=== PATIENT | female | born 1960 | race Caucasian/White ===

== ENCOUNTER 2019-04-13 09:18 | Emergency (ER) | payer BC, OTHER ==
[2019-04-13] MEDS ORDERED: Ibuprofen 600 MG Tab PO ONE (10:19)
--- NOTE | 2019-04-13 10:24 | EDM.PDOC ---
ED HPI GENERAL MEDICAL PROBLEM - General Chief Complaint: Lower Extremity Injury/Pain Stated Complaint: FELL ON ICE LT ANKLE INJ Time Seen by Provider: 04/13/19 10:20 Source of Information: Reports: Patient, RN, RN Notes Reviewed History Limitations: Reports: No Limitations - History of Present Illness INITIAL COMMENTS - FREE TEXT/NARRATIVE: Patient is a 58-year-old female who presents to our ED with left ankle pain after slipping on some black ice. She reports she fell and heard a snap and a pop. She does now have an obvious area of swelling on her left lateral leg just above the ankle. She denies hitting her head. She reports she fell in a somewhat sitting up position. Denies any worsening back or hip pain however she does report she has borderline chronic pain. She took some Tylenol ice this for 15 minutes around 9 AM admission. She reports this did help. She denies any pain while sitting but reports pain is worse with weightbearing. She carries a history of hypertension, hyperlipidemia, hypothyroidism. Denies any current blood thinners or aspirin. No drug allergies. Her PCP or his Lina Mackey NP. Left Ankle Pain Score (Numeric/FACES): 3 - Related Data Allergies Allergy/AdvReac Type Severity Reaction Status Date / Time No Known Allergies Allergy Verified 04/13/19 09:54 Home Meds: Home Meds Levothyroxine 25 mcg PO DAILY 04/13/19 [History] Lisinopril 30 mg PO DAILY 04/13/19 [History] Metoprolol Succinate 100 mg PO DAILY 04/13/19 [History] Rosuvastatin [Crestor] 10 mg PO DAILY 04/13/19 [History] Past Medical History HEENT History: Reports: Impaired Vision Cardiovascular History: Reports: High Cholesterol, Hypertension Social & Family History - Tobacco Use Smoking Status *Q: Never Smoker Second Hand Smoke Exposure: No Review of Systems - Review of Systems Review Of Systems: See Below Constitutional: Reports: No Symptoms Eyes: Reports: No Symptoms Ears: Reports: No Symptoms Nose: Reports: No Symptoms Respiratory: Reports: No Symptoms. Denies: Shortness of Breath, Wheezing, Cough , Sputum Cardiovascular: Reports: No Symptoms. Denies: Chest Pain, Edema, Lightheadedness, Palpitations GI/Abdominal: Reports: No Symptoms Genitourinary: Reports: No Symptoms Musculoskeletal: Reports: Leg Pain (Left leg above ankle ), Joint Swelling ( Swelling above left ankle joint ). Denies: Foot Pain, Joint Pain Skin: Reports: No Symptoms Neurological: Reports: No Symptoms Psychiatric: Reports: No Symptoms ED EXAM, GENERAL - Physical Exam Exam: See Below Exam Limited By: No Limitations General Appearance: Alert, WD/WN, No Apparent Distress Ears: Normal External Exam, Hearing Grossly Normal Nose: Normal Inspection Throat/Mouth: Normal Inspection, Normal Lips, Normal Teeth, Normal Gums, Normal Oropharynx, Normal Voice, No Airway Compromise Head: Atraumatic, Normocephalic Neck: Normal Inspection, Supple, Non-Tender, Full Range of Motion Respiratory/Chest: No Respiratory Distress, Lungs Clear, Normal Breath Sounds, No Accessory Muscle Use, Chest Non-Tender Cardiovascular: Normal Peripheral Pulses, Regular Rate, Rhythm, No Edema, No Gallop, No JVD, No Murmur, No Rub Peripheral Pulses: 3+: Radial (L), Radial (R), Dorsalis Pedis (L), Dorsalis Pedis (R) (Female) Exam: Deferred Back Exam: Normal Inspection, Full Range of Motion. No: Paraspinal Tenderness, Vertebral Tenderness Extremities: Normal Range of Motion, Non-Tender, No Pedal Edema, Normal Capillary Refill, Joint Swelling (Swelling noted above left ankle), Leg Pain ( Left leg above ankle ), Limited Range of Motion (2/2 pain) Neurological: Alert, Oriented Psychiatric: Normal Affect, Normal Mood Skin Exam: Warm, Dry, Intact Course - Vital Signs Last Recorded V/S: Last Vital Signs Temp 97.3 F 04/13/19 09:51 Pulse 136 H 04/13/19 09:51 Resp 16 04/13/19 09:51 BP 136/93 H 04/13/19 09:51 Pulse Ox 98 04/13/19 09:51 - Orders/Labs/Meds Orders: Active Orders 24 hr Category Date Time Status Ankle Min 3V Lt [CR] Stat Exams 04/13/19 10:20 Taken Meds: Medications Discontinued Medications Generic Name Dose Route Start Last Admin Trade Name Freq PRN Reason Stop Dose Admin Ibuprofen 600 mg 04/13/19 10:19 04/13/19 10:25 Motrin PO 04/13/19 10:20 600 mg ONETIME ONE Administration - Re-Assessments/Exams Free Text/Narrative Re-Assessment/Exam: Discussed pain control with patient. She reports she took Tylenol around 90?for the pain. Discussed importance of NSAID to help with swelling. Will order radiographic study of left ankle. Will also order 600mg PO motrin. 04/13/19 10:24 Reviewed left ankle x-ray with Dr. Sanz. Non-displaced distal fibular fracture noted. Will place walking boot and advise non-weightbearing status. Will have follow-up with Ortho. 04/13/19 10:39 Departure - Departure Time of Disposition: 10:42 Disposition: Home, Self-Care 01 Condition: Good Clinical Impression: Fibula fracture Qualifiers: Encounter type: initial encounter Fibula location: distal Fracture type: closed Fracture morphology: unspecified fracture morphology Laterality: left Qualified Code(s): S82.832A - Other fracture of upper and lower end of left fibula, initial encounter for closed fracture - Discharge Information *PRESCRIPTION DRUG MONITORING PROGRAM REVIEWED*: No *COPY OF PRESCRIPTION DRUG MONITORING REPORT IN PATIENT FLORIAN: No Instructions: Crutch Use, Adult, [id number] Referrals: Nunu Mackey NP [Primary Care Provider] - Forms: ED Department Discharge Additional Instructions: You were seen today for left leg pain. X-rays were obtained and showed that you have a left fibular fracture. The bones appear to be aligned well, which we called nondisplaced. You should not bear weight on this leg until directed otherwise by an orthopedist. Recommended you keep your extremity elevated and apply ice. We sure to use caution as he did not want to get frostbite on this leg as well. You can continue to use [id number] Tylenol and ibuprofen. Ibuprofen will be a little bit better choice because it will help with the swelling as well. You may follow car supervisor's dosing recommendations for this. Be sure to use caution as it is becoming icy out with your crutches. Should symptoms worsen or pain become unbearable, return to the emergency room, see your primary care provider, or report to orthopedics. We have an orthopedist from [facility], Dr. Chery, in our clinic on the third floor. You may call [phone] to schedule an appointment with him. [facility] also has orthopedics that visit and you may call [phone] to schedule with them. Recommended you follow-up with in orthopedics within 1 week. - My Orders Last 24 Hours: My Active Orders 04/13/19 10:20 Ankle Min 3V Lt [CR] Stat - Assessment/Plan Last 24 Hours: My Active Orders 04/13/19 10:20 Ankle Min 3V Lt [CR] Stat
--- NOTE | 2019-04-13 11:00 | CR ---
Left ankle: Four views of the left ankle were obtained. Comparison: No previous ankle study. Fracture is identified within the distal fibula. Fracture is oblique in alignment. Alignment remains close to anatomic. Ankle mortise is symmetric. Small calcification is seen off the medial malleolus. Small plantar spur is noted. No additional fracture or other bony abnormality is seen. Impression: 1. Nondisplaced distal fibular fracture. 2. Other findings as noted above believed to be incidental. Diagnostic code #3
== END 2019-04-13 11:14 | disposition home or self-care (01) ==
LOC: JD.ED 09:18
DX: S82.832A Other fracture of upper and lower end of left fibula, initial encounter for closed fracture (principal); I10 Essential (primary) hypertension; E03.9 Hypothyroidism, unspecified; E78.5 Hyperlipidemia, unspecified; E78.00 Pure hypercholesterolemia, unspecified; Z79.890 Hormone replacement therapy; Z79.899 Other long term (current) drug therapy; W00.0XXA Fall on same level due to ice and snow, initial encounter; Y93.K1 Activity, walking an animal
CPT/HCPCS: 73610; 99283; A9270

== ENCOUNTER 2019-12-30 06:40 | Inpatient (IN) | payer OTHER ==
[~2019-12-30 06:40] MED LIST: Bisacodyl 5 MG Tab PO PRN; Ketorolac 15 MG/ML SDV IVPUSH PRN; Lidocaine 1%/Sod Bicarbonate in NS 8.4% 1 ML Syringe IDERM PRN; Magnesium Hydroxide 400 MG/5 ML Susp 30 ML Cup PO PRN; Morphine 2 MG/ML SYRINGE IVPUSH PRN; Naloxone 0.4 MG/ML SDV IVPUSH PRN; Ondansetron 4 MG/2 ML SDV IVPUSH PRN; Sennosides 8.6 MG Tab PO PRN; Sodium Chloride 0.9% 10 ML Syringe FLUSH PRN
[2019-12-30] MEDS ORDERED: Acetaminophen 325 MG/10.15 ML ML PO SCH (06:54)
[2019-12-30] MEDS ORDERED: oxyCODONE ER 10 MG TAB.ER PO SCH (06:54)
[2019-12-30] MEDS ORDERED: Pregabalin 25 MG Cap PO SCH (06:55)
[2019-12-30] MEDS ORDERED: Famotidine 20 MG Tab PO SCH (07:00)
[2019-12-30] MEDS ORDERED: ceFAZolin 2 GM in Premix Bag 1 BAG IV SCH (07:00)
[2019-12-30] MEDS ORDERED: Acetaminophen 325 MG Tab PO SCH (07:01)
[2019-12-30] MEDS ORDERED: Propofol 200 MG/20 ML SDV ONE ×4 (07:06→09:07)
[2019-12-30] MEDS ORDERED: Ondansetron 4 MG/2 ML SDV ONE (07:06)
[2019-12-30] MEDS ORDERED: Midazolam 1 MG/ML 2 ML SDV ONE (07:07)
[2019-12-30] MEDS ORDERED: Lidocaine 1% 4 ML ONE (07:07)
[2019-12-30] MEDS ORDERED: fentaNYL 100 MCG/2 ML SDV ONE (07:07)
[2019-12-30] MEDS ORDERED: Bupivacaine 0.25% 10 ML SDV ONE (07:08)
[2019-12-30] MEDS ORDERED: Vancomycin 1 GM SDV ONE (07:08)
[2019-12-30] MEDS ORDERED: Iodine/Sodium Iodide 2% Tincture 30 ML Bottle ONE (07:08)
[2019-12-30] MEDS ORDERED: ceFAZolin 1 GM Vial ONE (07:08)
--- NOTE | 2019-12-30 07:14 | PCM.PREANE ---
Preanesthetic Assessment - Procedure Proposed Procedure: right total hip - Anesthesia/Transfusion/Family Hx Anesthesia History: Prior Anesthesia Without Reaction Family History of Anesthesia Reaction: No Transfusion History: Prior Transfusion Without Reaction - Review of Systems General: No Symptoms Pulmonary: No Symptoms Cardiovascular: No Symptoms Gastrointestinal: No Symptoms Neurological: No Symptoms Other: Reports: Thyroid Problems (hypothyroidism) - Physical Assessment NPO Status Date: 12/29/19 NPO Status Time: 00:00 Height: 1.75 m Weight: 74.1 kg ASA Class: 2 Mental Status: Alert & Oriented x3 Airway Class: Mallampati = 1 Dentition: Reports: Normal Dentition Thyro-Mental Finger Breadths: 3 Mouth Opening Finger Breadths: 3 ROM/Head Extension: Full Lungs: Clear to Auscultation, Normal Respiratory Effort Cardiovascular: Regular Rate, Regular Rhythm - Lab Values: Laboratory Last Values MRSA (PCR) Negative 12/16/19 12:24 - Imaging/EKG Impressions: EKG SR rate of 92 - Allergies Allergies/Adverse Reactions: Allergies Allergy/AdvReac Type Severity Reaction Status Date / Time No Known Allergies Allergy Verified 12/29/19 14:34 - Blood Blood Available: Yes Product(s) Available: PRBC - Anesthesia Plan Pre-Op Medication Ordered: Beta Robin Beta Robin: Metoprolol Med Last Dose Date: 12/30/19 Med Last Dose Time: 05:40 - Acknowledgements Anesthesia Type Planned: Spinal Pt an Appropriate Candidate for the Planned Anesthesia: Yes Alternatives and Risks of Anesthesia Discussed w Pt/Guardian: Yes Pt/Guardian Understands and Agrees with Anesthesia Plan: Yes PreAnesthesia Questionnaire HEENT History: Reports: Impaired Vision Cardiovascular History: Reports: High Cholesterol, Hypertension Respiratory History: Reports: None Gastrointestinal History: Reports: None Genitourinary History: Reports: None PHOTOGRAPHY PROFESSOR History: Reports: None Musculoskeletal History: Reports: Other (See Below) Other Musculoskeletal History: right fibula stress fracture, hip pain, left fibula fracture, knee arthroscopy Neurological History: Reports: None Psychiatric History: Reports: None Endocrine/Metabolic History: Reports: Hypothyroidism Hematologic History: Reports: None Immunologic History: Reports: None Oncologic (Cancer) History: Reports: None Dermatologic History: Reports: None - Past Surgical History Head Surgeries/Procedures: Reports: None Cardiovascular Surgical History: Reports: None Respiratory Surgical History: Reports: None GI Surgical History: Reports: Colonoscopy Female Surgical History: Reports: Hysterectomy Male Surgical History: Reports: None Endocrine Surgical History: Reports: None Neurological Surgical History: Reports: None Musculoskeletal Surgical History: Reports: None Oncologic Surgical History: Reports: None Dermatological Surgical History: Reports: None - SUBSTANCE USE Smoking Status *Q: Never Smoker Tobacco Use Within Last Twelve Months: No Second Hand Smoke Exposure: No Days Per Week of Alcohol Use: 1 Number of Drinks Per Day: 4 Total Drinks Per Week: 4 Recreational Drug Use History: No - HOME MEDS Home Medications: Home Meds Levothyroxine 25 mcg PO DAILY 04/13/19 [History] Metoprolol Succinate 150 mg PO DAILY 04/13/19 [History] Rosuvastatin [Crestor] 10 mg PO DAILY 04/13/19 [History] Ascorbic Acid [Vitamin C] 250 mg PO DAILY 12/29/19 [History] Calcium Carb/Vitamin D3/Vit K1 [Calcium + D Soft Chewable Tab] 1 tab PO DAILY 12/29/19 [History] Cetirizine [ZyrTEC] 10 mg PO DAILY 12/29/19 [History] Cholecalciferol (Vitamin D3) [Vitamin D3] 5,000 unit PO DAILY 12/29/19 [History] Elderberry Fruit and Flower [Black Elderberry 575 mg Cap] 2 cap PO DAILY 12/29/19 [History] Fluticasone Propionate [Flonase] 1 dose BECKI BID 12/29/19 [History] Magnesium Citrate 400 mg PO DAILY 12/29/19 [History] Turmeric Root Extract [Turmeric Curcumin] 1,500 mg PO DAILY 12/29/19 [History] Ubidecarenone [Coq-10] 200 mg PO DAILY 12/29/19 [History] hydroCHLOROthiazide [Hydrochlorothiazide] 25 mg PO DAILY 12/29/19 [History] lisinopriL [Lisinopril] 40 mg PO DAILY 12/29/19 [History] - CURRENT (IN HOUSE) MEDS Current Meds: Current Medications Acetaminophen (Tylenol) 975 mg PO ONETIME SABRA Acetaminophen (Tylenol) 975 mg PO NOW SABRA Aspirin (Ecotrin) 325 mg PO BID SABRA Bisacodyl (Dulcolax) 5 mg PO DAILY PRN PRN Reason: Constipation Morphine Sulfate 8 mg/Epinephrine HCl 0.3 mg/Cefuroxime Sodium 750 mg/Ketorolac Tromethamine 30 mg/Sodium Chloride 7.9 ml 0 mg .XX ASDIRECTED PRN PRN Reason: Pain Cyclobenzaprine HCl (Flexeril) 10 mg PO TID PRN PRN Reason: Spasms Docusate Sodium (Colace) 100 mg PO BID SABRA Famotidine (Pepcid) 20 mg PO Q12H [facility] Lactated Ringer's (Ringers, Lactated) 1,000 mls @ 125 mls/hr IV ASDIRECTED SABRA Stop: 12/30/19 23:00 Cefazolin Sodium/Dextrose 2 gm (/ Premix) 50 mls @ 100 mls/hr IV Q8H [facility] Stop: 12/30/19 23:29 Ketorolac Tromethamine (Toradol) 15 mg IVPUSH Q6H PRN PRN Reason: Pain Lidocaine/Sodium Bicarbonate (Buffered Lidocaine 1% In Ns 8.4%) 0.25 ml IDERM ONETIME PRN PRN Reason: Prior to IV Start Stop: 12/30/19 18:00 Magnesium Hydroxide (Milk Of Magnesia) 30 ml PO BID PRN PRN Reason: Constipation Morphine Sulfate (Morphine) 2 mg IVPUSH Q2H PRN PRN Reason: Breakthrough Pain Naloxone HCl (Narcan) 0.1 mg IVPUSH Q5M PRN PRN Reason: Oversedation Ondansetron HCl (Zofran) 4 mg IVPUSH Q6H PRN PRN Reason: Nausea/Vomiting Oxycodone HCl (Oxycontin) 10 mg PO ONETIME [facility] Stop: 12/30/19 13:00 Oxycodone/Acetaminophen (Percocet 325-5 Mg) 1 - 2 tab PO Q4H PRN PRN Reason: Pain Pregabalin (Lyrica) 50 mg PO ONETIME [facility] Stop: 12/30/19 13:00 Senna (Senna) 8.6 mg PO BID PRN PRN Reason: Constipation Sodium Chloride (Saline Flush) 10 ml FLUSH ASDIRECTED PRN PRN Reason: Keep Vein Open Stop: 12/30/19 18:00
--- NOTE | 2019-12-30 07:20 | PCM.CONS ---
H&P History of Present Illness - General Date of Service: 12/30/19 Admit Problem/Dx: Admission Diagnosis/Problem Admission Diagnosis/Problem Osteoarthritis of hip Source of Information: Patient, Old Records, Provider, RN, RN Notes Reviewed History Limitations: Reports: No Limitations - History of Present Illness Initial Comments - Free Text/Narative: Jenni Johnson is a 59 yo female patient of Dr. Chery who is post-operative day 1 of right MORRIS. Hospital medicine was consulted for post-operative medical care of the following listed medical conditions. At this time she is resting comfortably in bed. Pain is controlled. She denies any chest pain, shortness of breath, palpitations, nausea, or vomiting. She carries a history of: HLD, HTN, Hypothyroidism. She was never a smoker. She is a full code. Her primary care provider is Armin Mackey NP. Right Hip Pain Score (Numeric/FACES): 4 - Related Data Allergies/Adverse Reactions: Allergies Allergy/AdvReac Type Severity Reaction Status Date / Time No Known Allergies Allergy Verified 12/30/19 11:49 Home Medications: Home Meds Levothyroxine 25 mcg PO DAILY 04/13/19 [History] Metoprolol Succinate 150 mg PO DAILY 04/13/19 [History] Rosuvastatin [Crestor] 10 mg PO DAILY 04/13/19 [History] Calcium Carb/Vitamin D3/Vit K1 [Calcium + D Soft Chewable Tab] 1 tab PO DAILY 12/29/19 [History] Cetirizine [ZyrTEC] 10 mg PO DAILY 12/29/19 [History] Cholecalciferol (Vitamin D3) [Vitamin D3] 5,000 unit PO DAILY 12/29/19 [History] Elderberry Fruit and Flower [Black Elderberry 575 mg Cap] 1 cap PO DAILY 12/29/19 [History] Fluticasone Propionate [Flonase] 1 spray NASBOTH BID PRN 12/29/19 [History] Magnesium Citrate 400 mg PO DAILY 12/29/19 [History] Turmeric Root Extract [Turmeric Curcumin] 1,500 mg PO DAILY 12/29/19 [History] Ubidecarenone [Coq-10] 200 mg PO DAILY 12/29/19 [History] hydroCHLOROthiazide [Hydrochlorothiazide] 25 mg PO DAILY 12/29/19 [History] lisinopriL [Lisinopril] 40 mg PO DAILY 12/29/19 [History] Past Medical History HEENT History: Reports: Impaired Vision Cardiovascular History: Reports: High Cholesterol, Hypertension Respiratory History: Reports: None Gastrointestinal History: Reports: None Genitourinary History: Reports: None DIGITAL CAMPAIGN SPECIALIST History: Reports: None Musculoskeletal History: Reports: Other (See Below) Other Musculoskeletal History: right fibula stress fracture, hip pain, left fibula fracture, knee arthroscopy Neurological History: Reports: None Psychiatric History: Reports: None Endocrine/Metabolic History: Reports: Hypothyroidism Hematologic History: Reports: None Immunologic History: Reports: None Oncologic (Cancer) History: Reports: None Dermatologic History: Reports: None - Past Surgical History Head Surgeries/Procedures: Reports: None Cardiovascular Surgical History: Reports: None Respiratory Surgical History: Reports: None GI Surgical History: Reports: Colonoscopy Female Surgical History: Reports: Hysterectomy Male Surgical History: Reports: None Endocrine Surgical History: Reports: None Neurological Surgical History: Reports: None Musculoskeletal Surgical History: Reports: None Oncologic Surgical History: Reports: None Dermatological Surgical History: Reports: None Social & Family History - Tobacco Use Smoking Status *Q: Never Smoker Second Hand Smoke Exposure: No - Caffeine Use Caffeine Use: Reports: Coffee, Soda - Recreational Drug Use Recreational Drug Use: No H&P Review of Systems - Review of Systems: Review Of Systems: See Below General: Reports: No Symptoms. Denies: Fever, Chills HEENT: Reports: No Symptoms. Denies: Headaches, Sore Throat Pulmonary: Reports: No Symptoms. Denies: Shortness of Breath, Wheezing, Pleuritic Chest Pain, Cough, Sputum Cardiovascular: Reports: No Symptoms. Denies: Chest Pain, Palpitations, Dyspnea on Exertion Gastrointestinal: Reports: No Symptoms. Denies: Abdominal Pain, Constipation, Diarrhea, Nausea, Vomiting Genitourinary: Reports: No Symptoms. Denies: Pain Musculoskeletal: Reports: Leg Pain Skin: Reports: No Symptoms. Denies: Cyanosis Psychiatric: Reports: No Symptoms. Denies: Confusion Neurological: Reports: Numbness, Tingling, Difficulty Walking, Gait Disturbance Hematologic/Lymphatic: Reports: No Symptoms Immunologic: Reports: No Symptoms Exam - Exam Exam: See Below - Exam Quality Assessment: DVT Prophylaxis General: Alert, Oriented, Cooperative. No: Mild Distress HEENT: Conjunctiva Clear, EACs Clear, Mucosa Moist & [place], Posterior Pharynx Clear, PERRLA Neck: Supple, Trachea Midline Lungs: Clear to Auscultation, Normal Respiratory Effort Cardiovascular: Regular Rate, Regular Rhythm GI/Abdominal Exam: Normal Bowel Sounds, Soft, Non-Tender, No Distention (Female) Exam: Deferred Rectal (Female) Exam: Deferred Extremities: Normal Capillary Refill, Leg Pain, Limited Range of Motion, Other (Bandage in place on right leg. Bandage is dry and intact. Cooling pack in place. ) Peripheral Pulses: 2+: Radial (L), Radial (R), Dorsalis Pedis (L), Dorsalis Pedis (R) Skin: Warm, Dry, Intact Neurological: Cranial Nerves Intact (Grossly ) Neuro Extensive - Mental Status: Alert, Oriented x3, Normal Mood/Affect - Patient Data Result Diagrams: 12/31/19 05:35 Sepsis Event Note - Focused Exam Date Exam was Performed: 12/31/19 Time Exam was Performed: 07:00 Consult PN Assessment/Plan POD#: 0 Procedures: Procedures EMERGENCY DEPT VISIT (04/13/19) MRI JNT OF LWR EXTRE W/O DYE (11/17/19) X-RAY EXAM OF ANKLE (04/13/19) (1) S/P total hip arthroplasty SNOMED Code(s): 680479546043, 487596023285 Code(s): Z96.649 - PRESENCE OF UNSPECIFIED ARTIFICIAL HIP JOINT Priority: High Current Visit: Yes Qualifiers: Laterality: right Qualified Code(s): Z96.641 - Presence of right artificial hip joint (2) Osteoarthritis SNOMED Code(s): 098105678 Code(s): M19.90 - UNSPECIFIED OSTEOARTHRITIS, UNSPECIFIED SITE Priority: High Current Visit: Yes Qualifiers: Osteoarthritis location: hip Osteoarthritis type: primary Laterality: right Qualified Code(s): M16.11 - Unilateral primary osteoarthritis, right hip (3) HLD (hyperlipidemia) SNOMED Code(s): 10503108 Code(s): E78.5 - HYPERLIPIDEMIA, UNSPECIFIED Priority: Low Current Visit: No Qualifiers: Hyperlipidemia type: unspecified Qualified Code(s): E78.5 - Hyperlipidemia, unspecified (4) HTN (hypertension) SNOMED Code(s): 62646481 Code(s): I10 - ESSENTIAL (PRIMARY) HYPERTENSION Priority: Medium Current Visit: No Qualifiers: Hypertension type: unspecified Qualified Code(s): I10 - Essential (primary) hypertension (5) Hypothyroidism SNOMED Code(s): 09027395 Code(s): E03.9 - HYPOTHYROIDISM, UNSPECIFIED Priority: Low Current Visit: No Qualifiers: Hypothyroidism type: unspecified Qualified Code(s): E03.9 - Hypothyroidism, unspecified Problem List Initiated/Reviewed/Updated: Yes Plan: I/P: Acute: S/P right total hip arthroplasty - post-operative day 0 -DVT prophylaxis and pain management per primary care team -PT/OT -IS/RT -Monitor oxygen saturation -Titrate oxygen as needed -Home medications reviewed -Vital signs stable -Monitor labs -Pre-operative Hgb was 13.2 -Pre-operative GFR was 64 -12-lead EKG shows sinus rhythm at 92 BPM with probable LAE, RSR' noted in V1 and V2. Osteoarthritis of right hip -Pain management per primary care team Chronic: HLD HTN Hypothyroidism Plan: CM for discharge planning GI prophylaxis Home medications as indicated Other orders as listed above Routine AM labs She is a full code. Her PCP is Armin Mackey NP Thank you for allowing us to participate in the care of this patient!! Requesting Provider: Dr. Chery Date Consult Requested: 12/30/19 Patient History Reviewed: Yes Admission H&P Reviewed: Yes Notified Requestor: Yes
[2019-12-30] MEDS: Lactated Ringers 1,000 ML IV SCH ×2 (07:25→10:13)
[2019-12-30] MEDS ORDERED: Morphine Sulfate 8 MG, EPINEPHrine 0.3 MG, Cefuroxime 750 MG, Ketorolac 30 MG, Sodium C... PRN ×5 (08:00)
[2019-12-30] MEDS ORDERED: ePHEDrine Sulfate/0.9% NaCl/Pf 25 MG/5 ML SYRINGE IV ONE (08:04)
[2019-12-30] MEDS ORDERED: Lactated Ringers 1,000 ML ONE (08:17)
[2019-12-30] MEDS: ceFAZolin 1 GM Vial ONE ×2 (08:47→08:48)
--- NOTE | 2019-12-30 09:28 | PCM.POSTAN ---
POST ANESTHESIA ASSESSMENT - MENTAL STATUS Mental Status: Alert, Oriented - VITAL SIGNS Vital Signs: Last Vital Signs Temp 36.1 C 12/30/19 06:50 Pulse 72 12/30/19 06:50 Resp 16 12/30/19 06:50 BP 144/87 H 12/30/19 06:50 Pulse Ox 98 12/30/19 06:50 - RESPIRATORY Respiratory Status: Respiratory Rate WNL, Airway Patent, O2 Saturation Stable - CARDIOVASCULAR CV Status: Pulse Rate WNL, Blood Pressure Stable - GASTROINTESTINAL GI Status: No Symptoms - PAIN Pain Score: 0 - POST OP HYDRATION Hydration Status: Adequate & Stable - OBSERVATIONS Free Text/Narrative:: no anesthesia complications noted
--- NOTE | 2019-12-30 10:32 | CR ---
Pelvis and right hip: AP view of the pelvis was obtained as well as crosstable lateral view of the right hip. Comparison: Prior MRI right hip study of 11/17/19. Right hip prosthesis is seen. Components are aligned. Underlying bony structures are intact. Soft tissue air around the right hip compatible with the surgical procedure. Slight disc space narrowing is seen within the visualized lower lumbar spine. Impression: 1. Satisfactory radiographic appearance of recently placed right hip prosthesis. 2. Slight degenerative change within the visualized lower lumbar spine. Diagnostic code #2 This report was dictated in MDT
[2019-12-30] MEDS: Acetaminophen/oxyCODONE 325-5 MG Tab PO PRN ×3 (12:26→20:39)
[2019-12-30] MEDS: ceFAZolin 2 GM in Premix Bag 1 BAG IV SCH (15:32)
[2019-12-30] MEDS: Docusate Sodium 100 MG Cap PO SCH (20:38)
[2019-12-30] MEDS: Famotidine 20 MG Tab PO SCH (20:39)
[2019-12-30] MEDS: Cyclobenzaprine 10 MG Tab PO PRN (20:40)
[2019-12-30] MEDS ORDERED: Fluticasone Propionate Nasal Spray 16 GM Bottle NASBOTH SCH (21:00)
[2019-12-31] MEDS: ceFAZolin 2 GM in Premix Bag 1 BAG IV SCH ×2 (00:38→06:22)
[2019-12-31] MEDS: Ketorolac 15 MG/ML SDV IVPUSH PRN ×2 (00:38→09:20)
[2019-12-31] MEDS: Acetaminophen/oxyCODONE 325-5 MG Tab PO PRN ×3 (00:39→10:49)
[2019-12-31] MEDS: Aspirin 325 MG Tab.EC PO SCH ×2 (05:42→09:26)
[2019-12-31] MEDS ORDERED: Levothyroxine 25 MCG Tab PO SCH (06:00)
[2019-12-31] MEDS: Cyclobenzaprine 10 MG Tab PO PRN (06:20)
--- NOTE | 2019-12-31 07:09 | PCM.CONSN ---
- General Info Date of Service: 12/31/19 Admission Dx/Problem (Free Text): Admission Diagnosis/Problem Admission Diagnosis/Problem Osteoarthritis of hip Functional Status: Reports: Pain Controlled, Tolerating Diet, Ambulating, Urinating, Incentive Spirometry. Denies: New Symptoms - Review of Systems General: Reports: No Symptoms. Denies: Fever, Chills HEENT: Reports: No Symptoms. Denies: Headaches, Sore Throat Pulmonary: Reports: No Symptoms. Denies: Shortness of Breath, Pleuritic Chest Pain, Cough, Sputum, Wheezing Cardiovascular: Reports: No Symptoms. Denies: Chest Pain, Palpitations, Dyspnea on Exertion Gastrointestinal: Reports: No Symptoms, Other (Reports mild feeling like she has some gas in her RLQ. ). Denies: Abdominal Pain, Constipation, Diarrhea, Nausea, Vomiting Genitourinary: Reports: No Symptoms. Denies: Pain Musculoskeletal: Reports: Leg Pain Skin: Reports: No Symptoms. Denies: Cyanosis Neurological: Reports: Difficulty Walking, Gait Disturbance. Denies: Confusion, Numbness, Tingling Psychiatric: Reports: No Symptoms - Patient Data Vitals - Most Recent: Last Vital Signs Temp 98.4 F 12/31/19 06:22 Pulse 96 12/31/19 06:22 Resp 18 12/31/19 06:22 BP 101/55 L 12/31/19 06:22 Pulse Ox 99 12/31/19 06:22 Weight - Most Recent: 167 lb 8 oz I&O - Last 24 Hours: Intake & Output 12/30/19 12/31/19 12/31/19 22:59 06:59 14:59 Intake Total 1390 850 Balance 1390 850 Lab Results Last 24 Hours: Laboratory Results - last 24 hr 12/28/19 12/30/19 12/31/19 Range/Units 09:45 07:05 05:35 WBC 6.14 (3.98-10.04) K/mm3 RBC 2.64 L (3.98-5.22) M/mm3 Hgb 8.4 L (11.2-15.7) gm/dl Hct 26.1 L (34.1-44.9) % MCV 98.9 H (79.4-94.8) fl MCH 31.8 (25.6-32.2) pg MCHC 32.2 (32.2-35.5) g/dl RDW Std Deviation 40.0 (36.4-46.3) fL Plt Count 228 (182-369) K/mm3 MPV 8.6 L (9.4-12.3) fl COVID-19 PCR Not detected (NOT DETECT) Blood Type O POSITIVE Gel Antibody Screen Negative Med Orders - Current: Current Medications Aspirin (Ecotrin) 325 mg PO BID [facility] Last Admin: 12/31/19 05:42 Dose: Not Given Documented by: Bisacodyl (Dulcolax) 5 mg PO DAILY PRN PRN Reason: Constipation Cholecalciferol (Vitamin D3) 5,000 unit PO DAILY [facility] Cyclobenzaprine HCl (Flexeril) 10 mg PO TID PRN PRN Reason: Spasms Last Admin: 12/31/19 06:20 Dose: 10 mg Documented by: Docusate Sodium (Colace) 100 mg PO BID [facility] Last Admin: 12/30/19 20:38 Dose: 100 mg Documented by: Famotidine (Pepcid) 20 mg PO Q12H [facility] Last Admin: 12/30/19 20:39 Dose: 20 mg Documented by: Fluticasone Propionate (Flonase) 0 gm NASBOTH BID [facility] Cefazolin Sodium/Dextrose 2 gm (/ Premix) 50 mls @ 100 mls/hr IV Q8H [facility] Stop: 12/31/19 07:44 Last Admin: 12/31/19 06:22 Dose: 100 mls/hr Documented by: Ketorolac Tromethamine (Toradol) 15 mg IVPUSH Q6H PRN PRN Reason: Pain Last Admin: 12/31/19 00:38 Dose: 15 mg Documented by: Levothyroxine Sodium (Levothyroxine) 25 mcg PO ACBREAKFAST [facility] Last Admin: 12/31/19 06:20 Dose: 25 mcg Documented by: Loratadine (Claritin) 10 mg PO DAILY [facility] Magnesium Hydroxide (Milk Of Magnesia) 30 ml PO BID PRN PRN Reason: Constipation Magnesium Oxide (Magnesium Oxide) 400 mg PO DAILY [facility] Metoprolol Succinate (Toprol Xl) 150 mg PO DAILY [facility] Morphine Sulfate (Morphine) 2 mg IVPUSH Q2H PRN PRN Reason: Breakthrough Pain Naloxone HCl (Narcan) 0.1 mg IVPUSH Q5M PRN PRN Reason: Oversedation Ondansetron HCl (Zofran) 4 mg IVPUSH Q6H PRN PRN Reason: Nausea/Vomiting Oxycodone/Acetaminophen (Percocet 325-5 Mg) 1 - 2 tab PO Q4H PRN PRN Reason: Pain Last Admin: 12/31/19 06:20 Dose: 2 tab Documented by: Rosuvastatin Calcium (Crestor) 10 mg PO DAILY [facility] Senna (Senna) 8.6 mg PO BID PRN PRN Reason: Constipation Discontinued Medications Acetaminophen (Tylenol) 975 mg PO NOW [facility] Last Admin: 12/30/19 07:16 Dose: 975 mg Documented by: Bupivacaine HCl (Sensorcaine-Mpf 0.25%) Confirm Administered Dose 30 ml .ROUTE .STK-MED ONE Stop: 12/30/19 07:09 Last Admin: 12/30/19 08:52 Dose: 30 ml Documented by: Cefazolin Sodium (Ancef) Confirm Administered Dose 2 gm .ROUTE .STK-MED ONE Stop: 12/30/19 07:08 Last Admin: 12/30/19 08:48 Dose: 2 gm Documented by: Cefazolin Sodium (Ancef) Confirm Administered Dose 2 gm .ROUTE .STK-MED ONE Stop: 12/30/19 07:09 Morphine Sulfate 8 mg/Epinephrine HCl 0.3 mg/Cefuroxime Sodium 750 mg/Ketorolac Tromethamine 30 mg/Sodium Chloride 7.9 ml 0 mg .XX ASDIRECTED PRN PRN Reason: Pain Stop: 12/30/19 12:00 Last Admin: 12/30/19 08:53 Dose: 788.3 mg Documented by: Ephedrine Sulfate (Ephedrine 25 Mg/5 Ml Syringe) Confirm Administered Dose 25 mg IV .STK-MED ONE Stop: 12/30/19 08:05 Famotidine (Pepcid) 20 mg PO Q12H [facility] Last Admin: 12/30/19 11:02 Dose: Not Given Documented by: Fentanyl (Sublimaze) Confirm Administered Dose 100 mcg .ROUTE .STK-MED ONE Stop: 12/30/19 07:08 Lactated Ringer's (Ringers, Lactated) 1,000 mls @ 125 mls/hr IV ASDIRECTED [facility] Stop: 12/30/19 23:00 Last Admin: 12/30/19 10:13 Dose: 125 mls/hr Documented by: Cefazolin Sodium/Dextrose 2 gm (/ Premix) 50 mls @ 100 mls/hr IV Q8H [facility] Stop: 12/30/19 23:29 Last Admin: 12/30/19 11:02 Dose: Not Given Documented by: Lidocaine HCl (Xylocaine-Mpf 1%) Confirm Administered Dose 4 mls @ as directed .ROUTE .STK-MED ONE Stop: 12/30/19 07:08 Lactated Ringer's (Ringers, Lactated) Confirm Administered Dose 1,000 mls @ as directed .ROUTE .STK-MED ONE Stop: 12/30/19 08:18 Iodine (Iodine 2% Mild Tincture) Confirm Administered Dose 30 ml .ROUTE .STK-MED ONE Stop: 12/30/19 07:09 Last Admin: 12/30/19 08:46 Dose: 18 ml Documented by: Ketorolac Tromethamine (Toradol) 15 mg IVPUSH Q6H PRN PRN Reason: Pain Lidocaine/Sodium Bicarbonate (Buffered Lidocaine 1% In Ns 8.4%) 0.25 ml IDERM ONETIME PRN PRN Reason: Prior to IV Start Stop: 12/30/19 18:00 Last Admin: 12/30/19 07:25 Dose: 0.25 ml Documented by: Lisinopril (Prinivil) 40 mg PO DAILY [facility] Midazolam HCl (Versed 1 Mg/Ml) Confirm Administered Dose 2 mg .ROUTE .STK-MED ONE Stop: 12/30/19 07:08 Miscellaneous Medication (Phenylephrine 1 Mg/10 Ml-Ns) Confirm Administered Dose 1 mg IV .STK-MED ONE Stop: 12/30/19 08:39 Non-Formulary Medication (Ubidecarenone) 200 mg PO DAILY [facility] Ondansetron HCl (Zofran) Confirm Administered Dose 4 mg .ROUTE .STK-MED ONE Stop: 12/30/19 07:07 Oxycodone HCl (Oxycontin) 10 mg PO ONETIME [facility] Stop: 12/30/19 13:00 Last Admin: 12/30/19 07:15 Dose: 10 mg Documented by: Pregabalin (Lyrica) 50 mg PO ONETIME [facility] Stop: 12/30/19 13:00 Last Admin: 12/30/19 07:16 Dose: 50 mg Documented by: Propofol (Diprivan 20 Ml) Confirm Administered Dose 200 mg .ROUTE .STK-MED ONE Stop: 12/30/19 07:07 Propofol (Diprivan 20 Ml) Confirm Administered Dose 200 mg .ROUTE .STK-MED ONE Stop: 12/30/19 08:12 Propofol (Diprivan 20 Ml) Confirm Administered Dose 200 mg .ROUTE .STK-MED ONE Stop: 12/30/19 08:35 Propofol (Diprivan 20 Ml) Confirm Administered Dose 200 mg .ROUTE .STK-MED ONE Stop: 12/30/19 09:08 Sodium Chloride (Saline Flush) 10 ml FLUSH ASDIRECTED PRN PRN Reason: Keep Vein Open Stop: 12/30/19 18:00 Tranexamic Acid (Cyklokapron) Confirm Administered Dose 1,000 mg .ROUTE .STK-MED ONE Stop: 12/30/19 07:09 Last Admin: 12/30/19 08:54 Dose: 1,000 mg Documented by: Vancomycin HCl (Vancomycin) Confirm Administered Dose 1 gm .ROUTE .STK-MED ONE Stop: 12/30/19 07:09 Last Admin: 12/30/19 08:54 Dose: 1 gm Documented by: - Exam Quality Assessment: DVT Prophylaxis. No: Supplemental Oxygen, Urine Catheter General: Alert, Oriented, Cooperative, No Acute Distress HEENT: Pupils Equal, Pupils Reactive, Mucous Membr. Moist/[place] Neck: Supple, Trachea Midline Lungs: Clear to Auscultation, Normal Respiratory Effort Cardiovascular: Regular Rate, Regular Rhythm, Tachycardia GI/Abdominal Exam: Normal Bowel Sounds, Soft, Non-Tender, No Organomegaly, No Distention (Female) Exam: Deferred Back Exam: Normal Inspection, Full Range of Motion Extremities: Normal Capillary Refill, Leg Pain, Limited Range of Motion, Other (Bandage in place on right leg. Cooling pack in place. ) Peripheral Pulses: 2+: Radial (L), Radial (R), Dorsalis Pedis (L), Dorsalis Pedis (R) Skin: Warm, Dry, Intact Neurological: No New Focal Deficit Psy/Mental Status: Alert, Normal Affect, Normal Mood Sepsis Event Note - Evaluation Sepsis Screening Result: No Definite Risk - Focused Exam Vital Signs: Vital Signs Temp Pulse Resp BP Pulse Ox 12/31/19 06:22 98.4 F 96 18 101/55 L 99 12/30/19 20:44 98.6 F 71 18 101/81 96 Date Exam was Performed: 12/31/19 Time Exam was Performed: 08:46 Consult PN Assessment/Plan POD#: 1 Procedures: Procedures EMERGENCY DEPT VISIT (04/13/19) MRI JNT OF LWR EXTRE W/O DYE (11/17/19) X-RAY EXAM OF ANKLE (04/13/19) (1) S/P total hip arthroplasty SNOMED Code(s): 058641422857, 061806183764 Code(s): Z96.649 - PRESENCE OF UNSPECIFIED ARTIFICIAL HIP JOINT Priority: High Current Visit: Yes Qualifiers: Laterality: right Qualified Code(s): Z96.641 - Presence of right artificial hip joint (2) Osteoarthritis SNOMED Code(s): 966299359 Code(s): M19.90 - UNSPECIFIED OSTEOARTHRITIS, UNSPECIFIED SITE Priority: High Current Visit: Yes Qualifiers: Osteoarthritis location: hip Osteoarthritis type: primary Laterality: right Qualified Code(s): M16.11 - Unilateral primary osteoarthritis, right hip (3) HLD (hyperlipidemia) SNOMED Code(s): 88798538 Code(s): E78.5 - HYPERLIPIDEMIA, UNSPECIFIED Priority: Low Current Visit: No Qualifiers: Hyperlipidemia type: unspecified Qualified Code(s): E78.5 - Hyperlipidemia, unspecified (4) HTN (hypertension) SNOMED Code(s): 99622766 Code(s): I10 - ESSENTIAL (PRIMARY) HYPERTENSION Priority: Medium Current Visit: No Qualifiers: Hypertension type: unspecified Qualified Code(s): I10 - Essential (primary) hypertension (5) Hypothyroidism SNOMED Code(s): 37591460 Code(s): E03.9 - HYPOTHYROIDISM, UNSPECIFIED Priority: Low Current Visit: No Qualifiers: Hypothyroidism type: unspecified Qualified Code(s): E03.9 - Hypothyroidism, unspecified Problem List Initiated/Reviewed/Updated: Yes Plan: I/P: Acute: S/P right total hip arthroplasty - post-operative day 1 -DVT prophylaxis and pain management per primary care team -PT/OT -IS/RT -Monitor oxygen saturation -Titrate oxygen as needed -Home medications reviewed -Vital signs stable -Monitor labs -Pre-operative Hgb was 13.2; Now 8.4 -Pre-operative GFR was 64; Now 56 -12-lead EKG shows sinus rhythm at 92 BPM with probable LAE, RSR' noted in V1 and V2. Osteoarthritis of right hip -Pain management per primary care team Chronic: HLD HTN Hypothyroidism Plan: CM for discharge planning GI prophylaxis Home medications as indicated Other orders as listed above Routine AM labs She is a full code. Her PCP is Armin Mackey NP From a hospitalist standpoint Jenni is doing well. She has been up ambulating and working with therapies. She is off of oxygen and has urinated. Her pain is controlled. Her labs and vital signs remain stable. She is cleared for discharge pending primary team and PT/OT agreement. Thank you for allowing us to participate in the care of this patient!!
[2019-12-31] MEDS ORDERED: Cholecalciferol (Vitamin D3) 5,000 UNIT Tab PO SCH (09:00)
[2019-12-31] MEDS ORDERED: Magnesium Oxide 400 MG Tab PO SCH (09:00)
[2019-12-31] MEDS ORDERED: Rosuvastatin 10 MG Tab PO SCH (09:00)
[2019-12-31] MEDS ORDERED: Lisinopril 20 MG Tab PO SCH (09:00)
[2019-12-31] MEDS ORDERED: Metoprolol Succinate 50 MG Tab.ER PO SCH (09:00)
[2019-12-31] MEDS ORDERED: Non-Formulary Medication 1 Each (Ubidecarenone 200 MG) PO SCH (09:00)
[2019-12-31] MEDS ORDERED: Loratadine 10 MG Tab PO SCH (09:00)
[2019-12-31] MEDS: Famotidine 20 MG Tab PO SCH (09:27)
[2019-12-31] MEDS: Docusate Sodium 100 MG Cap PO SCH (09:27)
--- NOTE | 2019-12-31 13:04 | PCM.SURGPN ---
- General Info Date of Service: 12/31/19 POD#: 1 Functional Status: Reports: Pain Controlled, Tolerating Diet, Ambulating, Urinating, Incentive Spirometry, Other (Nursing and OT state pt has been progressing well.) - Patient Data Vitals - Most Recent: Last Vital Signs Temp 97.5 F 12/31/19 07:55 Pulse 62 12/31/19 09:23 Resp 16 12/31/19 07:55 BP 104/67 12/31/19 09:23 Pulse Ox 97 12/31/19 07:55 Weight - Most Recent: 167 lb 8 oz I&O - Last 24 Hours: Intake & Output 12/30/19 12/31/19 12/31/19 22:59 06:59 14:59 Intake Total 1390 850 420 Balance 1390 850 420 Lab Results Last 24 Hrs: Laboratory Results - last 24 hr 12/31/19 12/31/19 Range/Units 05:35 05:35 WBC 6.14 (3.98-10.04) K/mm3 RBC 2.64 L (3.98-5.22) M/mm3 Hgb 8.4 L (11.2-15.7) gm/dl Hct 26.1 L (34.1-44.9) % MCV 98.9 H (79.4-94.8) fl MCH 31.8 (25.6-32.2) pg MCHC 32.2 (32.2-35.5) g/dl RDW Std Deviation 40.0 (36.4-46.3) fL Plt Count 228 (182-369) K/mm3 MPV 8.6 L (9.4-12.3) fl Sodium 132 L (136-145) mEq/L Potassium 4.7 (3.5-5.1) mEq/L Chloride 97 L (98-107) mEq/L Carbon Dioxide 29 (21-32) mEq/L Anion Gap 10.7 (5-15) BUN 21 H (7-18) mg/dL Creatinine 1.0 (0.55-1.02) mg/dL Est Cr Clr Drug Dosing 61.74 mL/min Estimated GFR (MDRD) 56 (>60) mL/min BUN/Creatinine Ratio 21.0 H (14-18) Glucose 115 (80-115) mg/dL Calcium 8.8 (8.5-10.1) mg/dL Total Bilirubin 0.8 (0.2-1.0) mg/dL AST 27 (15-37) U/L ALT 31 (14-59) U/L Alkaline Phosphatase 60 (46-116) U/L Total Protein 6.0 L (6.4-8.2) g/dl Albumin 2.9 L (3.4-5.0) g/dl Globulin 3.1 gm/dL Albumin/Globulin Ratio 0.9 L (1-2) Med Orders - Current: Current Medications Discontinued Medications Acetaminophen (Tylenol) 975 mg PO NOW [facility] Last Admin: 12/30/19 07:16 Dose: 975 mg Documented by: Aspirin (Ecotrin) 325 mg PO BID [facility] Last Admin: 12/31/19 09:26 Dose: 325 mg Documented by: Bisacodyl (Dulcolax) 5 mg PO DAILY PRN PRN Reason: Constipation Bupivacaine HCl (Sensorcaine-Mpf 0.25%) Confirm Administered Dose 30 ml .ROUTE .STK-MED ONE Stop: 12/30/19 07:09 Last Admin: 12/30/19 08:52 Dose: 30 ml Documented by: Cefazolin Sodium (Ancef) Confirm Administered Dose 2 gm .ROUTE .STK-MED ONE Stop: 12/30/19 07:08 Last Admin: 12/30/19 08:48 Dose: 2 gm Documented by: Cefazolin Sodium (Ancef) Confirm Administered Dose 2 gm .ROUTE .STK-MED ONE Stop: 12/30/19 07:09 Cholecalciferol (Vitamin D3) 5,000 unit PO DAILY [facility] Last Admin: 12/31/19 09:28 Dose: 5,000 unit Documented by: Morphine Sulfate 8 mg/Epinephrine HCl 0.3 mg/Cefuroxime Sodium 750 mg/Ketorolac Tromethamine 30 mg/Sodium Chloride 7.9 ml 0 mg .XX ASDIRECTED PRN PRN Reason: Pain Stop: 12/30/19 12:00 Last Admin: 12/30/19 08:53 Dose: 788.3 mg Documented by: Cyclobenzaprine HCl (Flexeril) 10 mg PO TID PRN PRN Reason: Spasms Last Admin: 12/31/19 06:20 Dose: 10 mg Documented by: Docusate Sodium (Colace) 100 mg PO BID [facility] Last Admin: 12/31/19 09:27 Dose: 100 mg Documented by: Ephedrine Sulfate (Ephedrine 25 Mg/5 Ml Syringe) Confirm Administered Dose 25 mg IV .STK-MED ONE Stop: 12/30/19 08:05 Famotidine (Pepcid) 20 mg PO Q12H [facility] Last Admin: 12/30/19 11:02 Dose: Not Given Documented by: Famotidine (Pepcid) 20 mg PO Q12H [facility] Last Admin: 12/31/19 09:27 Dose: 20 mg Documented by: Fentanyl (Sublimaze) Confirm Administered Dose 100 mcg .ROUTE .STK-MED ONE Stop: 12/30/19 07:08 Fluticasone Propionate (Flonase) 0 gm NASBOTH BID [facility] Lactated Ringer's (Ringers, Lactated) 1,000 mls @ 125 mls/hr IV ASDIRECTED [facility] Stop: 12/30/19 23:00 Last Admin: 12/30/19 10:13 Dose: 125 mls/hr Documented by: Cefazolin Sodium/Dextrose 2 gm (/ Premix) 50 mls @ 100 mls/hr IV Q8H [facility] Stop: 12/30/19 23:29 Last Admin: 12/30/19 11:02 Dose: Not Given Documented by: Cefazolin Sodium/Dextrose 2 gm (/ Premix) 50 mls @ 100 mls/hr IV Q8H [facility] Stop: 12/31/19 07:44 Last Admin: 12/31/19 06:22 Dose: 100 mls/hr Documented by: Lidocaine HCl (Xylocaine-Mpf 1%) Confirm Administered Dose 4 mls @ as directed .ROUTE .STK-MED ONE Stop: 12/30/19 07:08 Lactated Ringer's (Ringers, Lactated) Confirm Administered Dose 1,000 mls @ as directed .ROUTE .STK-MED ONE Stop: 12/30/19 08:18 Iodine (Iodine 2% Mild Tincture) Confirm Administered Dose 30 ml .ROUTE .STK-MED ONE Stop: 12/30/19 07:09 Last Admin: 12/30/19 08:46 Dose: 18 ml Documented by: Ketorolac Tromethamine (Toradol) 15 mg IVPUSH Q6H PRN PRN Reason: Pain Ketorolac Tromethamine (Toradol) 15 mg IVPUSH Q6H PRN PRN Reason: Pain Last Admin: 12/31/19 09:20 Dose: 15 mg Documented by: Levothyroxine Sodium (Levothyroxine) 25 mcg PO ACBREAKFAST [facility] Last Admin: 12/31/19 06:20 Dose: 25 mcg Documented by: Lidocaine/Sodium Bicarbonate (Buffered Lidocaine 1% In Ns 8.4%) 0.25 ml IDERM ONETIME PRN PRN Reason: Prior to IV Start Stop: 12/30/19 18:00 Last Admin: 12/30/19 07:25 Dose: 0.25 ml Documented by: Lisinopril (Prinivil) 40 mg PO DAILY [facility] Loratadine (Claritin) 10 mg PO DAILY [facility] Last Admin: 12/31/19 09:28 Dose: Not Given Documented by: Magnesium Hydroxide (Milk Of Magnesia) 30 ml PO BID PRN PRN Reason: Constipation Magnesium Oxide (Magnesium Oxide) 400 mg PO DAILY [facility] Last Admin: 12/31/19 09:29 Dose: 400 mg Documented by: Metoprolol Succinate (Toprol Xl) 150 mg PO DAILY [facility] Last Admin: 12/31/19 09:23 Dose: 150 mg Documented by: Midazolam HCl (Versed 1 Mg/Ml) Confirm Administered Dose 2 mg .ROUTE .STK-MED ONE Stop: 12/30/19 07:08 Miscellaneous Medication (Phenylephrine 1 Mg/10 Ml-Ns) Confirm Administered Dose 1 mg IV .STK-MED ONE Stop: 12/30/19 08:39 Morphine Sulfate (Morphine) 2 mg IVPUSH Q2H PRN PRN Reason: Breakthrough Pain Naloxone HCl (Narcan) 0.1 mg IVPUSH Q5M PRN PRN Reason: Oversedation Non-Formulary Medication (Ubidecarenone) 200 mg PO DAILY [facility] Ondansetron HCl (Zofran) 4 mg IVPUSH Q6H PRN PRN Reason: Nausea/Vomiting Last Admin: 12/31/19 07:28 Dose: 4 mg Documented by: Ondansetron HCl (Zofran) Confirm Administered Dose 4 mg .ROUTE .STK-MED ONE Stop: 12/30/19 07:07 Oxycodone HCl (Oxycontin) 10 mg PO ONETIME [facility] Stop: 12/30/19 13:00 Last Admin: 12/30/19 07:15 Dose: 10 mg Documented by: Oxycodone/Acetaminophen (Percocet 325-5 Mg) 1 - 2 tab PO Q4H PRN PRN Reason: Pain Last Admin: 12/31/19 10:49 Dose: 2 tab Documented by: Pregabalin (Lyrica) 50 mg PO ONETIME [facility] Stop: 12/30/19 13:00 Last Admin: 12/30/19 07:16 Dose: 50 mg Documented by: Propofol (Diprivan 20 Ml) Confirm Administered Dose 200 mg .ROUTE .STK-MED ONE Stop: 12/30/19 07:07 Propofol (Diprivan 20 Ml) Confirm Administered Dose 200 mg .ROUTE .STK-MED ONE Stop: 12/30/19 08:12 Propofol (Diprivan 20 Ml) Confirm Administered Dose 200 mg .ROUTE .STK-MED ONE Stop: 12/30/19 08:35 Propofol (Diprivan 20 Ml) Confirm Administered Dose 200 mg .ROUTE .STK-MED ONE Stop: 12/30/19 09:08 Rosuvastatin Calcium (Crestor) 10 mg PO DAILY [facility] Last Admin: 12/31/19 09:28 Dose: 10 mg Documented by: Senna (Senna) 8.6 mg PO BID PRN PRN Reason: Constipation Sodium Chloride (Saline Flush) 10 ml FLUSH ASDIRECTED PRN PRN Reason: Keep Vein Open Stop: 12/30/19 18:00 Tranexamic Acid (Cyklokapron) Confirm Administered Dose 1,000 mg .ROUTE .STK-MED ONE Stop: 12/30/19 07:09 Last Admin: 12/30/19 08:54 Dose: 1,000 mg Documented by: Vancomycin HCl (Vancomycin) Confirm Administered Dose 1 gm .ROUTE .STK-MED ONE Stop: 12/30/19 07:09 Last Admin: 12/30/19 08:54 Dose: 1 gm Documented by: - Exam Wound/Incisions: Dressing Dry and Intact General: Alert, Cooperative, No Acute Distress Lungs: Normal Respiratory Effort Extremities: Other (NVS intact for BLE. Jhony's negative for BLE. ) Sepsis Event Note - Evaluation Sepsis Screening Result: No Definite Risk - Focused Exam Vital Signs: Vital Signs Temp Pulse Resp BP Pulse Ox 12/31/19 09:23 62 104/67 12/31/19 07:55 97.5 F 83 16 101/62 97 12/31/19 06:22 98.4 F 96 18 101/55 L 99 Date Exam was Performed: 12/31/19 Time Exam was Performed: 13:01 - Problem List Review Problem List Initiated/Reviewed/Updated: Yes - My Orders Last 24 Hours: Active Orders 24 hr Category Date Time Status Ready for Discharge [RC] PER UNIT ROUTINE Care 12/31/19 13:00 Active - Assessment Assessment (Free Text/Narrative):: POD#1 - right MORRIS - Plan Plan (Free Text/Narrative):: 1. Hgb 8.4. 2. Discharge to home today. The pt will have assistance at home. 3. 325mg ASA PO BID, frequent mobility, TEDs. 4. MORRIS precautions. 5. WBAT. 6. Outpatient therapy. The pt's case was discussed with Dr. Chery.
--- NOTE | 2019-12-31 13:06 | PCM.DCSUM1 ---
Discharge Summary - Hospital Course Brief History: Jenni is a 59 yo female who underwent right MORRIS with Dr. Chery on 12-30-2019. The procedure was completed under spinal anesthesia with sedation. The pt tolerated the procedure well and was admitted to the Medical-Surgical Unit. Medical management was provided by the Hospitalist service. The pt's Hospital course was remarkable for acute blood loss anemia. Hgb on POD#1 was 8.4. On POD#1, 325mg ASA BID was initiated for VTE prophylaxis. SCDs and TEDs were also ordered. A Mepilex dressing was placed at the incision site at the time of surgery and remained clean and dry. The pt participated in P.T. and O.T. and progressed well. She followed the MORRIS precautions. The pt was allowed to WBAT. On POD#1, the pt was deemed appropriate to discharge to home. - Discharge Data Discharge Date: 12/31/19 Discharge Disposition: Home, Self-Care 01 Condition: Good - Referral to Home Health Primary Care Physician: Nunu Mackey NP - Patient Summary/Data Consults: Consultations 12/30/19 06:39 Consult to Physician [CONS] Routine OT Evaluation and Treatment [CONS] Routine PT Evaluation and Treatment [CONS] Routine - Patient Instructions Diet: Usual Diet as Tolerated Activity: Apply Ice, As Tolerated, Bedrest, Full Weight Bearing Activity, Other: Follow the total hip precautions. Driving: Do Not Drive Showering/Bathing: May Shower Wound/Incision Care: Keep Operative Site/Wound Site Clean and Dry, Do NOT Change Dressing Notify Provider of: Fever, Increased Pain, Swelling and Redness, Drainage, Nausea and/or Vomiting Other/Special Instructions: Please get up and moving around EVERY HOUR while awake. This helps to prevent blood clots. Please use your walker and have help with mobility as needed. Take a short walk in your home every hour while awake. Please take 325mg aspirin TWICE daily. The aspirin is being used for blood clot prevention and not for pain management so please do not miss a dose of the medication. You could use a medication like Pepcid or Tagamet and a medication like Prilosec or Nexium to protect your stomach while you are using the aspirin. At home, please complete the exercises that you learned during the Hospital stay. Schedule for physical therapy. Use the pain medication as needed. The medication may cause drowsiness and constipation. Contact your primary care provider for instructions if you are constipated. You may use a stool softener like docusate sodium or Colace 100mg twice daily and/or a laxative like Miralax daily for constipation. Increase your water and fiber intake while you are using the pain medication. Discontinue use of the pain medication as soon as able. Please do not use other medications that may cause drowsiness (other pain medications, anxiety pills, cold medications, sleeping pills, etc) while using the prescription pain medication. Do not use alcohol while using the pain medication. You may use acetaminophen or Tylenol for pain management, however, please ensure you are not using over 4000 mg or 4 grams of acetaminophen per day from all sources. Your pain medication has 325mg of acetaminophen per tablet. At this time, please do not use ibuprofen (Motrin, Advil) or naproxen (Aleve) for pain management as you are using the aspirin. When the aspirin course is completed in 4 to 6 weeks, you could use ibuprofen or naproxen for pain management (if this is allowed by your primary care provider). Wear the CHANDAN hose during the day and you may remove these at night. Elevate the limb to decrease swelling. Place ice to the area often. Place a towel between your skin and the blue pad. Use the incentive spirometer often. Take deep breaths throughout the day. Please keep the dressing in place until follow-up. Notify the Clinic if the dressing becomes saturated. Increase your protein intake while you are healing. If you have diabetes, please closely monitor your blood sugars and notify your primary care provider with abnormal values. Elevated blood sugars increases the risk of infection. Call the Clinic with questions or concerns - [phone] and leave a message for the nurse. - Discharge Plan *PRESCRIPTION DRUG MONITORING PROGRAM REVIEWED*: No *COPY OF PRESCRIPTION DRUG MONITORING REPORT IN PATIENT FLORIAN: No Prescriptions/Med Rec: Aspirin [Ecotrin EC] 325 mg PO BID #70 tab.ec Cyclobenzaprine [Flexeril] 10 mg PO BID PRN #20 tablet PRN Reason: Spasms Acetaminophen/oxyCODONE [Percocet 325-5 MG] 1 - 2 tab PO Q4H PRN #60 tablet PRN Reason: Pain Home Medications: Home Meds Levothyroxine 25 mcg PO DAILY 04/13/19 [History] Metoprolol Succinate 150 mg PO DAILY 04/13/19 [History] Rosuvastatin [Crestor] 10 mg PO DAILY 04/13/19 [History] Calcium Carb/Vitamin D3/Vit K1 [Calcium + D Soft Chewable Tab] 1 tab PO DAILY 12/29/19 [History] Cetirizine [ZyrTEC] 10 mg PO DAILY 12/29/19 [History] Cholecalciferol (Vitamin D3) [Vitamin D3] 5,000 unit PO DAILY 12/29/19 [History] Fluticasone Propionate [Flonase] 1 spray NASBOTH BID PRN 12/29/19 [History] Magnesium Citrate 400 mg PO DAILY 12/29/19 [History] Ubidecarenone [Coq-10] 200 mg PO DAILY 12/29/19 [History] hydroCHLOROthiazide [Hydrochlorothiazide] 25 mg PO DAILY 12/29/19 [History] lisinopriL [Lisinopril] 40 mg PO DAILY 12/29/19 [History] Acetaminophen/oxyCODONE [Percocet 325-5 MG] 1 - 2 tab PO Q4H PRN #60 tablet 12/31/19 [Rx] Aspirin [Ecotrin EC] 325 mg PO BID #70 tab.ec 12/31/19 [Rx] Cyclobenzaprine [Flexeril] 10 mg PO BID PRN #20 tablet 12/31/19 [Rx] Docusate Sodium [Colace] 100 mg PO BID cap 12/31/19 [Rx] Famotidine [Pepcid] 20 mg PO Q12H tablet 12/31/19 [Rx] Magnesium Hydroxide [Milk of Magnesia] 30 ml PO BID PRN cup 12/31/19 [Rx] Sennosides [Senna] 8.6 mg PO BID PRN tablet 12/31/19 [Rx] bisacodyL [Dulcolax] 5 mg PO DAILY PRN tablet 12/31/19 [Rx] Referrals: Areli Cameron PA-C [Physician Assistant Sales Director] - (You have 3 follow up apt.'s with Areli Cameron and they are as follows: 01/06/20 at 1pm. 01/20/20 at 1pm. 02/10/20 at 1pm.) - Discharge Summary/Plan Comment DC Time >30 min.: No - Patient Data Vitals - Most Recent: Last Vital Signs Temp 97.5 F 12/31/19 07:55 Pulse 62 12/31/19 09:23 Resp 16 12/31/19 07:55 BP 104/67 12/31/19 09:23 Pulse Ox 97 12/31/19 07:55 Weight - Most Recent: 167 lb 8 oz I&O - Last 24 hours: Intake & Output 12/30/19 12/31/19 12/31/19 22:59 06:59 14:59 Intake Total 1390 850 420 Balance 1390 850 420 Lab Results - Last 24 hrs: Laboratory Results - last 24 hr 12/31/19 12/31/19 Range/Units 05:35 05:35 WBC 6.14 (3.98-10.04) K/mm3 RBC 2.64 L (3.98-5.22) M/mm3 Hgb 8.4 L (11.2-15.7) gm/dl Hct 26.1 L (34.1-44.9) % MCV 98.9 H (79.4-94.8) fl MCH 31.8 (25.6-32.2) pg MCHC 32.2 (32.2-35.5) g/dl RDW Std Deviation 40.0 (36.4-46.3) fL Plt Count 228 (182-369) K/mm3 MPV 8.6 L (9.4-12.3) fl Sodium 132 L (136-145) mEq/L Potassium 4.7 (3.5-5.1) mEq/L Chloride 97 L (98-107) mEq/L Carbon Dioxide 29 (21-32) mEq/L Anion Gap 10.7 (5-15) BUN 21 H (7-18) mg/dL Creatinine 1.0 (0.55-1.02) mg/dL Est Cr Clr Drug Dosing 61.74 mL/min Estimated GFR (MDRD) 56 (>60) mL/min BUN/Creatinine Ratio 21.0 H (14-18) Glucose 115 (80-115) mg/dL Calcium 8.8 (8.5-10.1) mg/dL Total Bilirubin 0.8 (0.2-1.0) mg/dL AST 27 (15-37) U/L ALT 31 (14-59) U/L Alkaline Phosphatase 60 (46-116) U/L Total Protein 6.0 L (6.4-8.2) g/dl Albumin 2.9 L (3.4-5.0) g/dl Globulin 3.1 gm/dL Albumin/Globulin Ratio 0.9 L (1-2) Med Orders - Current: Current Medications Discontinued Medications Acetaminophen (Tylenol) 975 mg PO NOW [facility] Last Admin: 12/30/19 07:16 Dose: 975 mg Documented by: Aspirin (Ecotrin) 325 mg PO BID [facility] Last Admin: 12/31/19 09:26 Dose: 325 mg Documented by: Bisacodyl (Dulcolax) 5 mg PO DAILY PRN PRN Reason: Constipation Bupivacaine HCl (Sensorcaine-Mpf 0.25%) Confirm Administered Dose 30 ml .ROUTE .STK-MED ONE Stop: 12/30/19 07:09 Last Admin: 12/30/19 08:52 Dose: 30 ml Documented by: Cefazolin Sodium (Ancef) Confirm Administered Dose 2 gm .ROUTE .STK-MED ONE Stop: 12/30/19 07:08 Last Admin: 12/30/19 08:48 Dose: 2 gm Documented by: Cefazolin Sodium (Ancef) Confirm Administered Dose 2 gm .ROUTE .STK-MED ONE Stop: 12/30/19 07:09 Cholecalciferol (Vitamin D3) 5,000 unit PO DAILY [facility] Last Admin: 12/31/19 09:28 Dose: 5,000 unit Documented by: Morphine Sulfate 8 mg/Epinephrine HCl 0.3 mg/Cefuroxime Sodium 750 mg/Ketorolac Tromethamine 30 mg/Sodium Chloride 7.9 ml 0 mg .XX ASDIRECTED PRN PRN Reason: Pain Stop: 12/30/19 12:00 Last Admin: 12/30/19 08:53 Dose: 788.3 mg Documented by: Cyclobenzaprine HCl (Flexeril) 10 mg PO TID PRN PRN Reason: Spasms Last Admin: 12/31/19 06:20 Dose: 10 mg Documented by: Docusate Sodium (Colace) 100 mg PO BID [facility] Last Admin: 12/31/19 09:27 Dose: 100 mg Documented by: Ephedrine Sulfate (Ephedrine 25 Mg/5 Ml Syringe) Confirm Administered Dose 25 mg IV .STK-MED ONE Stop: 12/30/19 08:05 Famotidine (Pepcid) 20 mg PO Q12H [facility] Last Admin: 12/30/19 11:02 Dose: Not Given Documented by: Famotidine (Pepcid) 20 mg PO Q12H [facility] Last Admin: 12/31/19 09:27 Dose: 20 mg Documented by: Fentanyl (Sublimaze) Confirm Administered Dose 100 mcg .ROUTE .STK-MED ONE Stop: 12/30/19 07:08 Fluticasone Propionate (Flonase) 0 gm NASBOTH BID [facility] Lactated Ringer's (Ringers, Lactated) 1,000 mls @ 125 mls/hr IV ASDIRECTED [facility] Stop: 12/30/19 23:00 Last Admin: 12/30/19 10:13 Dose: 125 mls/hr Documented by: Cefazolin Sodium/Dextrose 2 gm (/ Premix) 50 mls @ 100 mls/hr IV Q8H [facility] Stop: 12/30/19 23:29 Last Admin: 12/30/19 11:02 Dose: Not Given Documented by: Cefazolin Sodium/Dextrose 2 gm (/ Premix) 50 mls @ 100 mls/hr IV Q8H [facility] Stop: 12/31/19 07:44 Last Admin: 12/31/19 06:22 Dose: 100 mls/hr Documented by: Lidocaine HCl (Xylocaine-Mpf 1%) Confirm Administered Dose 4 mls @ as directed .ROUTE .STK-MED ONE Stop: 12/30/19 07:08 Lactated Ringer's (Ringers, Lactated) Confirm Administered Dose 1,000 mls @ as directed .ROUTE .STK-MED ONE Stop: 12/30/19 08:18 Iodine (Iodine 2% Mild Tincture) Confirm Administered Dose 30 ml .ROUTE .STK-MED ONE Stop: 12/30/19 07:09 Last Admin: 12/30/19 08:46 Dose: 18 ml Documented by: Ketorolac Tromethamine (Toradol) 15 mg IVPUSH Q6H PRN PRN Reason: Pain Ketorolac Tromethamine (Toradol) 15 mg IVPUSH Q6H PRN PRN Reason: Pain Last Admin: 12/31/19 09:20 Dose: 15 mg Documented by: Levothyroxine Sodium (Levothyroxine) 25 mcg PO ACBREAKFAST [facility] Last Admin: 12/31/19 06:20 Dose: 25 mcg Documented by: Lidocaine/Sodium Bicarbonate (Buffered Lidocaine 1% In Ns 8.4%) 0.25 ml IDERM ONETIME PRN PRN Reason: Prior to IV Start Stop: 12/30/19 18:00 Last Admin: 12/30/19 07:25 Dose: 0.25 ml Documented by: Lisinopril (Prinivil) 40 mg PO DAILY [facility] Loratadine (Claritin) 10 mg PO DAILY [facility] Last Admin: 12/31/19 09:28 Dose: Not Given Documented by: Magnesium Hydroxide (Milk Of Magnesia) 30 ml PO BID PRN PRN Reason: Constipation Magnesium Oxide (Magnesium Oxide) 400 mg PO DAILY [facility] Last Admin: 12/31/19 09:29 Dose: 400 mg Documented by: Metoprolol Succinate (Toprol Xl) 150 mg PO DAILY [facility] Last Admin: 12/31/19 09:23 Dose: 150 mg Documented by: Midazolam HCl (Versed 1 Mg/Ml) Confirm Administered Dose 2 mg .ROUTE .STK-MED ONE Stop: 12/30/19 07:08 Miscellaneous Medication (Phenylephrine 1 Mg/10 Ml-Ns) Confirm Administered Dose 1 mg IV .STK-MED ONE Stop: 12/30/19 08:39 Morphine Sulfate (Morphine) 2 mg IVPUSH Q2H PRN PRN Reason: Breakthrough Pain Naloxone HCl (Narcan) 0.1 mg IVPUSH Q5M PRN PRN Reason: Oversedation Non-Formulary Medication (Ubidecarenone) 200 mg PO DAILY [facility] Ondansetron HCl (Zofran) 4 mg IVPUSH Q6H PRN PRN Reason: Nausea/Vomiting Last Admin: 12/31/19 07:28 Dose: 4 mg Documented by: Ondansetron HCl (Zofran) Confirm Administered Dose 4 mg .ROUTE .STK-MED ONE Stop: 12/30/19 07:07 Oxycodone HCl (Oxycontin) 10 mg PO ONETIME [facility] Stop: 12/30/19 13:00 Last Admin: 12/30/19 07:15 Dose: 10 mg Documented by: Oxycodone/Acetaminophen (Percocet 325-5 Mg) 1 - 2 tab PO Q4H PRN PRN Reason: Pain Last Admin: 12/31/19 10:49 Dose: 2 tab Documented by: Pregabalin (Lyrica) 50 mg PO ONETIME [facility] Stop: 12/30/19 13:00 Last Admin: 12/30/19 07:16 Dose: 50 mg Documented by: Propofol (Diprivan 20 Ml) Confirm Administered Dose 200 mg .ROUTE .STK-MED ONE Stop: 12/30/19 07:07 Propofol (Diprivan 20 Ml) Confirm Administered Dose 200 mg .ROUTE .STK-MED ONE Stop: 12/30/19 08:12 Propofol (Diprivan 20 Ml) Confirm Administered Dose 200 mg .ROUTE .STK-MED ONE Stop: 12/30/19 08:35 Propofol (Diprivan 20 Ml) Confirm Administered Dose 200 mg .ROUTE .STK-MED ONE Stop: 12/30/19 09:08 Rosuvastatin Calcium (Crestor) 10 mg PO DAILY [facility] Last Admin: 12/31/19 09:28 Dose: 10 mg Documented by: Senna (Senna) 8.6 mg PO BID PRN PRN Reason: Constipation Sodium Chloride (Saline Flush) 10 ml FLUSH ASDIRECTED PRN PRN Reason: Keep Vein Open Stop: 12/30/19 18:00 Tranexamic Acid (Cyklokapron) Confirm Administered Dose 1,000 mg .ROUTE .STK-MED ONE Stop: 12/30/19 07:09 Last Admin: 12/30/19 08:54 Dose: 1,000 mg Documented by: Vancomycin HCl (Vancomycin) Confirm Administered Dose 1 gm .ROUTE .STK-MED ONE Stop: 12/30/19 07:09 Last Admin: 12/30/19 08:54 Dose: 1 gm Documented by:
--- NOTE | 2020-01-06 13:41 | PCM.OPNOTE ---
- General Post-Op/Procedure Note Date of Surgery/Procedure: 12/30/19 Operative Procedure(s): right total hip arhtroplasty Pre Op Diagnosis: right hip osteoarthrosis Post-Op Diagnosis: Same Anesthesia Technique: Local, MAC, Spinal Primary Surgeon: Jake Chery Anesthesia Provider: Feliciano Clement Corn Husker Machine Operator: Areli Cameron Corn Husker Machine Operator: Zaida Pike EBL in mLs: 400 Complications: None Condition: Good Free Text/Narrative:: 54 cup 4 stem 36+5
--- NOTE | 2020-01-06 14:07 | OR ---
DATE OF OPERATION: 12/30/2019 SURGEON: Jake Chery MD OPERATION PERFORMED: Right total hip arthroplasty. PREOPERATIVE DIAGNOSIS: Right hip osteoarthrosis. POSTOPERATIVE DIAGNOSIS: Right hip osteoarthrosis. ANESTHESIA: Local MAC with spinal. ANESTHESIA PROVIDER: Feliciano Clement CRNA. ASSISTANTS: Areli Cameron PA-C and Zaida Pike LPN. ESTIMATED BLOOD LOSS: 400 mL. COMPLICATIONS: None. CONDITION: Stable. IMPLANT: 1. [place] size 54 mm solid Tritanium II acetabular cup. 2. 36 mm flat liner. 3. [place] size 4 Accolade II stem. 4. [place] size 36 +5 Biolox femoral head. DESCRIPTION OF PROCEDURE: The patient was identified in the preoperative holding area. Proper site was marked and identified by the surgeon. The patient was taken back to the operative theater, where after adequate anesthesia the patient was placed in a left lateral decubitus position. Axillary roll was placed. All bony prominences were well padded. The patient's gluteal fold was parallel to the floor. At this time, right hip was then sterilely prepped and draped in the usual sterile fashion, and OR time-out was performed. The patient received 2 g IV Ancef. Standard posterior incision was made. This was centered over the greater trochanter. This was taken down to the IT band and gluteal fascia which was incised along the incisional length. Charnley retractor was then placed. Short external rotators were identified and takedown of the short external rotators was done from the level of the piriformis down to the lesser trochanter. The hip was then dislocated. Neck cut was completed and found to be adequate. Anterior and posterior acetabular retractors were then placed and circumferential removal of the pulvinar as well as labrum was done at this time. Starting with a 50 reamer, I was able to ream up to a 54, which had a good bony bleeding bed and adequate purchase. A 54 mm solid Tritanium II acetabular cup was impacted into place in roughly anatomic position for the patient. At this time, the 36 flat liner was impacted in place and attention was turned to the femur. Box chisel was used out laterally. Starter awl was placed down the canal starting with the 0 broach, I was able to broach up to a size 4. It was found to be rotationally and vertically stable. A 127 degree trial neck was placed with a +0. It was noted to be a minor amount short, so we did a +5. It had adequate oriental orthodox of leg lengths and was stable throughout range of motion. At this time, the trial implants were removed. The size 4 Accolade II stem was impacted into place and then the 36 +5 Biolox femoral head was impacted onto the stem. The hip was then reduced. #5 Ethibond suture was used for closure of the short external rotators and capsule. 1 L dilute Betadine solution was irrigated through the hip along with 3 L pulse lavage irrigation with Ancef. Topical tranexamic acid and vancomycin powder were applied. Periarticular injection was completed. #2 barbed suture was used for closure of the IT band and gluteal fascia. 2-0 Vicryl was used subcutaneously and Prineo was used for the skin. The patient tolerated the procedure well and was sent to PACU in stable condition. MMODAL /[id number]
== END 2019-12-31 11:15 | disposition home or self-care (01) | DRG 470 ==
LOC: JD.MS 06:40
PROVIDERS: ADMIT Orthopaedic Surgery; ATTEND Orthopaedic Surgery
PROC: 0SR90JZ Replacement of Right Hip Joint with Synthetic Substitute, Open Approach (ICD-10-PCS; principal; 2019-12-30)
DX: M16.11 Unilateral primary osteoarthritis, right hip (principal); D62 Acute posthemorrhagic anemia; I10 Essential (primary) hypertension; E78.5 Hyperlipidemia, unspecified; E78.00 Pure hypercholesterolemia, unspecified; E03.9 Hypothyroidism, unspecified; Z79.899 Other long term (current) drug therapy; Z90.710 Acquired absence of both cervix and uterus
CPT/HCPCS: 01214; 36415; 73501-26-RT; 73501-RT; 80053; 85027; 86850; 86900; 86901; 87641; 97110-GP; 97116-GP; 97161-GP; 97165-GO; 97535-GO; 99221; 99231; A9270-GY; C1776; J0171; J0690; J0697; J1885; J2001; J2250; J2270; J2370; J2405; J2704; J3010; J3370; J3490; J7120; U0002

== ENCOUNTER 2023-09-23 07:00 | Day surgery (SDC) | payer BC, MEDICARE ==
[~2023-09-23 07:00] MED LIST changes: -Bisacodyl 5 MG Tab PO PRN; +HYDROmorphone 0.5 MG/0.5 ML Syringe IVPUSH PRN; -Ketorolac 15 MG/ML SDV IVPUSH PRN; +Lidocaine 1% 2 ML ONE; -Lidocaine 1%/Sod Bicarbonate in NS 8.4% 1 ML Syringe IDERM PRN; -Magnesium Hydroxide 400 MG/5 ML Susp 30 ML Cup PO PRN; +Midazolam 1 MG/ML 2 ML SDV ONE; -Morphine 2 MG/ML SYRINGE IVPUSH PRN; -Naloxone 0.4 MG/ML SDV IVPUSH PRN; +Propofol 200 MG/20 ML SDV ONE; -Sennosides 8.6 MG Tab PO PRN; +Sodium Chloride 0.9% 10 ML Syringe FLUSH SCH; +ceFAZolin 2 GM Vial ONE; +fentaNYL 100 MCG/2 ML SDV IVPUSH PRN; +fentaNYL 100 MCG/2 ML SDV ONE
[2023-09-23] MEDS ORDERED: Vancomycin 1 GM SDV ONE (07:02)
[2023-09-23] MEDS ORDERED: Tranexamic Acid 1,000 MG/10 ML Vial ONE (07:17)
[2023-09-23] MEDS: Lactated Ringers 1,000 ML IV SCH (07:20)
[2023-09-23] MEDS: Acetaminophen 325 MG Tab PO SCH (07:58)
[2023-09-23] MEDS: Pregabalin 25 MG Cap PO SCH (08:04)
[2023-09-23] MEDS: oxyCODONE ER 10 MG TAB.ER PO SCH (08:04)
[2023-09-23] MEDS ORDERED: ePHEDrine 50 MG/ML SDV ONE ×2 (08:36→09:53)
[2023-09-23] MEDS: Tranexamic Acid 1,000 MG/10 ML Vial ONE (09:22)
[2023-09-23] MEDS: Morphine 8 MG, EPINEPHrine 0.3 MG, Cefuroxime 750 MG, Ketorolac 30 MG, Sodium Chloride ... PRN (09:22)
[2023-09-23] MEDS: Vancomycin 1 GM SDV ONE (09:22)
[2023-09-23] MEDS ORDERED: Ketorolac 30 MG/ML SDV ONE (09:26)
[2023-09-23] MEDS: oxyCODONE 5 MG Tab PO PRN (13:28)
== END 2023-09-23 14:20 | disposition home or self-care (01) ==
LOC: JD.SDS 07:00
PROVIDERS: ATTEND Orthopaedic Surgery
DX: M16.12 Unilateral primary osteoarthritis, left hip (principal); I10 Essential (primary) hypertension; E03.9 Hypothyroidism, unspecified; E78.2 Mixed hyperlipidemia; Z79.890 Hormone replacement therapy; Z79.82 Long term (current) use of aspirin; Z79.899 Other long term (current) drug therapy
CPT/HCPCS: 0055T; 27447; 36415; 73501; 86850; 86900; 86901; 97110; 97161; A9270; C1713; C1776; J0171; J0690; J0697; J1885; J2250; J2270; J2704; J3010; J3370; J7120; 01214; J3490